=== PATIENT | male | born 1970 | race Hispanic/Latino ===

== ENCOUNTER → 2022-04-19 | Outpatient (CLI) | payer OTHER | END | disposition home or self-care (01) | LOC: RAH 13:46 | PROVIDERS: ATTEND Internal Medicine Hematology & Oncology | DX: I82.412 Acute embolism and thrombosis of left femoral vein (principal); M54.32 Sciatica, left side; C20 Malignant neoplasm of rectum; D50.9 Iron deficiency anemia, unspecified | CPT/HCPCS: 93971 ==